=== PATIENT | male | born 1945 | race Caucasian/White ===

== ENCOUNTER → 2024-07-13 17:27 | Outpatient (REF) | payer MEDICARE, OTHER, SELFPAY | LOC: RAD 17:27 | PROVIDERS: ATTENDING PHYSICIAN Family Medicine | DX: R29.898 Other symptoms and signs involving the musculoskeletal system (principal) | CPT/HCPCS: 73110; 73130 ==

== ENCOUNTER → 2024-07-19 07:12 | Outpatient (REF) | payer MEDICARE, OTHER, SELFPAY | LOC: EMG 07:12 | PROVIDERS: ATTENDING PHYSICIAN Family Medicine | DX: R29.898 Other symptoms and signs involving the musculoskeletal system (principal); G56.03 Carpal tunnel syndrome, bilateral upper limbs | CPT/HCPCS: 95886; 95911 ==

== ENCOUNTER → 2024-10-29 13:16 | Outpatient (REF) | payer MEDICARE, OTHER, SELFPAY | LOC: RAD 13:16 | PROVIDERS: ATTENDING PHYSICIAN Student in an Organized Health Care Education/Training Program; FAMILY PHYSICIAN Family Medicine | DX: M81.0 Age-related osteoporosis without current pathological fracture (principal); M79.89 Other specified soft tissue disorders; M35.3 Polymyalgia rheumatica; M54.2 Cervicalgia; M25.541 Pain in joints of right hand; M25.542 Pain in joints of left hand; Z79.52 Long term (current) use of systemic steroids; M25.512 Pain in left shoulder | CPT/HCPCS: 72050; 77080 ==

== ENCOUNTER → 2025-07-31 13:21 | Outpatient (REF) | payer MEDICARE, OTHER, SELFPAY | LOC: RCS 13:21 | PROVIDERS: ATTENDING PHYSICIAN Internal Medicine Interventional Cardiology; FAMILY PHYSICIAN Family Medicine | DX: I10 Essential (primary) hypertension (principal) | CPT/HCPCS: 93306 ==